=== PATIENT | male | born 1975 | race Caucasian/White ===

== ENCOUNTER 2019-02-05 10:08 | Emergency (ER) | payer OTHER ==
[~2019-02-05] VITALS: Ht 188 cm; Wt 90.7 kg
[2019-02-05] MEDS ORDERED: NS IV 1000 ML 1,000 ML IV SCH (10:22)
--- NOTE | 2019-02-05 10:34 | ED Syncope ---
General Chief Complaint: Dizziness/Syncope Stated Complaint: SYNCOPE Nursing Triage Note: REPORTS SATURDAY AND SATURDAY HE FELT HOT FEELING. REPORTS NOT DRINKING MUCH WATER YESTERDAY AND HIS URINE WAS DARK YELLOW LAST PM. THIS AM HE STATED HIS URINE WAS LIGHT YELLOW UPON AWAKENING BUT HE WENT TO WORK AND URINATED AND IT WAS A DARK ORANGE. COLOR. HE REPORTS HE LEFT THE RESTROOM AND FELT LIGHTHEADED AND DIZZY AND HE WOKE UP WITH COWORKERS STADNING OVER HIM. HE REPORTS HITTING HIS NOSE ON A DESK AT WORK. LOSS OF CONSCIOUSNESS BRIEFLY. History of Present Illness Date Seen by Provider: Feb 05, 2019 Time Seen by Provider: 10:20 Initial Comments 44-year-old male brought and following the syncope event. Patient reports that over the last couple days he has had decreased fluid intake. That he noticed that his urine was dark yesterday, that he has not been having as much stool is normal. Reports that last night he drank some Gatorade and a few beers. At this morning he got up his urine was light and normal but then when he went to urinate later this morning that was dark again and that he had a bowel movement. After getting up from the bowel movement he went and sat in his base where he just didn't feel good. He fell little bit lightheaded and dizzy. Reports that he got up to walk outside when he felt nauseated. He then vomited and had a syncope event. Reports that when he had a syncope event he hit his head. Patient reports this is still a little warm on Saturday and Saturday. He denied any chest pain or other acute symptoms at this time. Allergies and Home Medications Allergies Coded Allergies: No Known Drug Allergies (Unverified , 02/05/19) Patient Home Medication List Home Medication List Reviewed: Yes Review of Systems Constitutional: chills, dizziness; No fever EENTM: see HPI Respiratory: no symptoms reported Cardiovascular: No chest pain, No palpitations Gastrointestinal: No abdominal pain; nausea Genitourinary: decreased output Musculoskeletal: no symptoms reported Skin: no symptoms reported Psychiatric/Neurological: Denies Headache, Denies Numbness, Denies Seizure Past [id number] Hx Past Med/Social Hx: Reviewed Nursing Past Med/Soc Hx Patient Social History Recent Foreign Travel: No Contact w/Someone Who Travel: No Recent Infectious Disease Expo: No Physical Exam Vital Signs Vital Signs - First Documented 02/05/19 10:20 Temp 97.3 Pulse 84 Resp 18 B/P (MAP) 134/90 (105) Pulse Ox 97 O2 Delivery Room Air Capillary Refill : Less Than 3 Seconds Height, Weight, BMI Height: 6'2.00" Weight: 200lbs. oz. 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 Norm as Tested Cranial Nerves: PERRL Coordination/Gait: Normal Gait Motor/Sensory: No Motor Deficit Skin: Other (Rosacea over his bilateral cheeks, abrasion over the bridge of the nose from his fall) Progress/Results/Core Measures Results/Orders Lab Results Laboratory Tests Test 02/05/19 10:25 02/05/19 12:00 Range/Units White Blood Count 4.9 4.3-11.0 10^3/uL Red Blood Count 3.75 L 4.35-5.85 10^6/uL Hemoglobin 13.4 13.3-17.7 G/DL Hematocrit 38 L 40-54 % Mean Corpuscular Volume 100 H 80-99 FL Mean Corpuscular Hemoglobin 36 H 25-34 PG Mean Corpuscular Hemoglobin Concent 36 32-36 G/DL Red Cell Distribution Width 12.5 10.0-14.5 % Platelet Count 124 L 130-400 10^3/uL Mean Platelet Volume 10.8 H 7.4-10.4 FL Neutrophils (%) (Auto) 61 42-75 % Lymphocytes (%) (Auto) 27 12-44 % Monocytes (%) (Auto) 9 0-12 % Eosinophils (%) (Auto) 2 0-10 % Basophils (%) (Auto) 1 0-10 % Neutrophils # (Auto) 3.0 1.8-7.8 X 10^3 Lymphocytes # (Auto) 1.4 1.0-4.0 X 10^3 Monocytes # (Auto) 0.4 0.0-1.0 X 10^3 Eosinophils # (Auto) 0.1 0.0-0.3 10^3/uL Basophils # (Auto) 0.1 0.0-0.1 10^3/uL Sodium Level 135 135-145 MMOL/L Potassium Level 2.9 L 3.6-5.0 MMOL/L Chloride Level 90 L 98-107 MMOL/L Carbon Dioxide Level 26 21-32 MMOL/L Anion Gap 19 H 5-14 MMOL/L Blood Urea Nitrogen 7 7-18 MG/DL Creatinine 1.03 0.60-1.30 MG/DL Estimat Glomerular Filtration Rate > 60 BUN/Creatinine Ratio 7 Glucose Level 143 H 70-105 MG/DL Calcium Level 8.7 8.5-10.1 MG/DL Corrected Calcium 8.5 8.5-10.1 MG/DL Total Bilirubin 6.6 H 0.1-1.0 MG/DL Direct Bilirubin 4.8 H 0.0-0.3 MG/DL Aspartate Amino Transf (AST/SGOT) 584 H 5-34 U/L Alanine Aminotransferase (ALT/SGPT) 265 H 0-55 U/L Alkaline Phosphatase 234 H 40-136 U/L Troponin I < 0.30 <0.30 NG/ML Total Protein 7.1 6.4-8.2 GM/DL Albumin 4.2 3.2-4.5 GM/DL Lipase 42 8-78 U/L Serum Alcohol 50 H <10 MG/DL Urine Color BROWN H Urine Clarity CLEAR Urine pH 6.5 5-9 Urine Specific [place] 1.025 H 1.016-1.022 Urine Protein TRACE NEGATIVE Urine Glucose (UA) TRACE H NEGATIVE Urine Ketones TRACE H NEGATIVE Urine Nitrite NEGATIVE NEGATIVE Urine Bilirubin 2+ H NEGATIVE Urine Urobilinogen 4.0 NORMAL MG/DL Urine Leukocyte Esterase NEGATIVE NEGATIVE Urine RBC (Auto) NEGATIVE NEGATIVE Urine RBC NONE /HPF Urine WBC NONE /HPF Urine Crystals NONE /LPF Urine Bacteria NONE /HPF Urine Casts PRESENT /LPF Urine Hyaline Casts 0-2 H /LPF Urine Mucus LARGE H /LPF Urine Culture Indicated NO My Orders Orders - VIRAJ MEDINA L DO Accucheck Stat ONCE (02/05/19 10:22) Ed Iv/Invasive Line Start (02/05/19 10:22) Ekg Tracing (02/05/19 10:22) Alcohol (02/05/19 10:22) Cbc With Automated Diff (02/05/19 10:22) Comprehensive Metabolic Panel (02/05/19 10:22) Creatine Kinase (02/05/19 10:22) Lipase (02/05/19 10:22) Troponin I (02/05/19 10:22) Ua Culture If Indicated (02/05/19 10:22) Acute Abd Series (02/05/19 10:22) Ct Head Wo (02/05/19 10:22) Ed Iv/Invasive Line Start (02/05/19 10:22) Ed Iv/Invasive Line Start (02/05/19 10:22) Ns Iv 1000 Ml (Sodium Chloride 0.9%) (02/05/19 10:22) Potassium Cl 10meq/50ml Ivpb (Kcl 10 Meq (02/05/19 11:30) Magnesium 1 Gm/100 Ml Ivpb (Magnesium [place] (02/05/19 11:30) Ct Abdomen/Pelvis W (02/05/19 11:36) Iohexol Injection (Omnipaque 350 Mg/Ml 1 (02/05/19 12:15) Received Contrast (Hold Metformin- Contr (02/05/19 12:15) Sodium Chloride Flush (Catheter Flush Sy (02/05/19 12:15) Ns (Ivpb) (Sodium Chloride 0.9% Ivpb Bag (02/05/19 12:15) Bilirubin,Direct (02/05/19 13:23) Medications Given in ED Current Medications Medications Dose Ordered Sig/[place] Route Start Time Stop Time Status Last Admin Dose Admin Iohexol 100 ml ONCE ONCE IV 02/05/19 12:15 02/05/19 12:16 DC 02/05/19 12:30 100 ML Sodium Chloride 10 ml NEEDED PRN IV 02/05/19 12:15 02/05/19 12:31 10 ML Sodium Chloride 100 ml ONCE ONCE IV 02/05/19 12:15 02/05/19 12:16 DC 02/05/19 12:31 100 ML Vital Signs/I&O 02/05/19 10:20 Temp 97.3 Pulse 84 Resp 18 B/P (MAP) 134/90 (105) Pulse Ox 97 O2 Delivery Room Air Blood Pressure Mean: 105 Progress Progress Note : Progress Note Reviewed CT, lab results with GI specialist at [facility]. [place] that it was best that they be transferred there for possible ERCP/MRCP and right upper quadrant all trip sounds. Patient will be transferred to the emergency room accepted by Dr. Singh due to his fall, syncope event. Patient is transferred by EMS in stable condition. Initial ECG Impression Date: Feb 05, 2019 Initial ECG Impression Time: 10:30 Initial ECG Rhythm: Normal Sinus Initial ECG Intervals: Normal Initial ECG Impression: Normal Comment NSR Departure Impression Primary Impression: Total bilirubin, elevated Additional Impressions: Hypokalemia Syncope Qualified Codes: R55 - Syncope and collapse Disposition: 02 XFER SHT-TRM HOSP Condition: Stable Transfer Time Spoke to Accepting Phy: 14:05 Transfer Facility: [facility] [place] Method of Transfer: EMS Departure-Patient Inst. Referrals: NO,LOCAL PHYSICIAN (PCP/Family) Primary Care Physician VIRAJ MEDINA DO Feb 05, 2019 10:34
[2019-02-05 10:40] LABS: HEMATOCRIT 38 % (40-54); HEMOGLOBIN 13.4 G/DL (13.3-17.7); MEAN CORPUSCULAR HEMOGLOBIN 36 PG (25-34); MEAN CORPUSCULAR HGB CONC 36 G/DL (32-36); MEAN CORPUSCULAR VOLUME 100 FL (80-99); PLATELET COUNT 124 10^3/uL (130-400); RED CELL DISTRIBUTION WIDTH 12.5 % (10.0-14.5); WHITE BLOOD COUNT 4.9 10^3/uL (4.3-11.0)
[2019-02-05 10:41] LABS: BASOPHILS # (AUTO) 0.1 10^3/uL (0.0-0.1); BASOPHILS % (AUTO) 1 % (0-10); EOSINOPHILS # (AUTO) 0.1 10^3/uL (0.0-0.3); EOSINOPHILS % (AUTO) 2 % (0-10); LYMPHOCYTES # (AUTO) 1.4 X 10^3 (1.0-4.0); LYMPHOCYTES % (AUTO) 27 % (12-44); MEAN PLATELET VOLUME 10.8 FL (7.4-10.4); MONOCYTES # (AUTO) 0.4 X 10^3 (0.0-1.0); MONOCYTES % (AUTO) 9 % (0-12); NEUTROPHILS % (AUTO) 61 % (42-75)
--- NOTE | 2019-02-05 10:46 | Diagnostic Imaging Report ---
PROCEDURE: CT head without contrast. TECHNIQUE: Multiple contiguous axial images were obtained through the brain without the use of intravenous contrast. Auto Exposure Controls were utilized during the CT exam to meet ALARA standards for radiation dose reduction. INDICATION: Dizziness and syncope with loss of consciousness CT HEAD: CT images of the head were obtained. FINDINGS: Ventricles and sulci are within normal limits for size. There is no intracranial hemorrhage identified. There is no abnormal mass effect or shift of midline structures. IMPRESSION: Unremarkable CT of the head. Dictated by: Dictated on workstation # [id number]
[2019-02-05 11:01] LABS: ALANINE AMINOTRANSFERASE 265 U/L (0-55); ALKALINE PHOSPHATASE 234 U/L (40-136); BILIRUBIN,TOTAL 6.6 MG/DL (0.1-1.0); BUN/CREATININE RATIO 7; CALCIUM 8.7 MG/DL (8.5-10.1); CARBON DIOXIDE 26 MMOL/L (21-32); CHLORIDE 90 MMOL/L (98-107); CREATININE SERUM 1.03 MG/DL (0.60-1.30); GFR ESTIMATED > 60; GLUCOSE 143 MG/DL (70-105); POTASSIUM 2.9 MMOL/L (3.6-5.0); SODIUM 135 MMOL/L (135-145); TOTAL PROTEIN 7.1 GM/DL (6.4-8.2)
[2019-02-05 11:02] LABS: ALBUMIN 4.2 GM/DL (3.2-4.5); LIPASE 42 U/L (8-78)
--- NOTE | 2019-02-05 11:16 | Diagnostic Imaging Report ---
INDICATION: Dizziness with nausea and vomiting. TIME OF EXAM: 10:24 a.m. FINDINGS: Heart size is normal. Lungs are clear. No free air is identified on the upright view. Bowel gas pattern is nonobstructed. No pathologic calcifications are seen. There is questionable hepatic enlargement. IMPRESSION: Questionable hepatomegaly. The study is otherwise unremarkable. Dictated by: Dictated on workstation # [id number]
[2019-02-05] MEDS ORDERED: POTASSIUM CL 10MEQ/50ML IVPB 50 ML IV SCH (11:30)
[2019-02-05] MEDS ORDERED: MAGNESIUM 1 GM/100 ML IVPB 100 ML IV SCH (11:30)
[2019-02-05] MEDS ORDERED: HOLD METFORMIN - RECEIVED CONTRAST 20 ML VIAL IV SCH (12:15)
[2019-02-05] MEDS ORDERED: NS 100 ML (IVPB) BAG IV ONE (12:15)
[2019-02-05] MEDS ORDERED: IOHEXOL 350 MG/ML 100 ML (OMNIPAQUE 350) VIAL IV ONE (12:15)
[2019-02-05] MEDS ORDERED: CATHETER FLUSH 10 ML SYR IV PRN (12:15)
[2019-02-05 12:20] LABS: BILIRUBIN,URINE 2+ (NEGATIVE); CLARITY,URINE CLEAR; COLOR,URINE BROWN; GLUCOSE, URINE (UA) TRACE (NEGATIVE); KETONES,URINE TRACE (NEGATIVE); LEUKOCYTE ESTERASE ,URINE NEGATIVE (NEGATIVE); NITRITE,URINE NEGATIVE (NEGATIVE); PH,URINE 6.5 (5-9); PROTEIN,URINE TRACE (NEGATIVE)
[2019-02-05 12:21] LABS: HYALINE CASTS, URINE 0-2 /LPF
--- NOTE | 2019-02-05 12:47 | Diagnostic Imaging Report ---
INDICATION: Abdominal pain and nausea and vomiting, elevated liver enzymes. CT abdomen and pelvis obtained with IV contrast bolus. The visualized portions of the lung bases show dependent atelectatic changes. There is no consolidation or pleural fluid. There is no free intraperitoneal air. The liver shows marked diffuse low-density change compatible with fatty infiltration. There is no focal liver lesion. Gallbladder and spleen appear unremarkable. The adrenals and pancreas and kidneys appear normal. There is no retroperitoneal mass or adenopathy. There's no ascites or abnormal fluid collection. Visualized bowel loops show no sign of obstruction. There is some faint edema in the fat adjacent to the ascending colon which may represent minimal colitis. The appendix appears normal. There is no pelvic mass or free fluid. IMPRESSION: There is profound fatty infiltration of the liver without focal lesion. There is no biliary dilatation. There is some faint edema in the fat adjacent to the ascending colon which may represent mild colitis. The appendix appears normal. Dictated by: Dictated on workstation # [id number]
[2019-02-05 14:19] VITALS: BP 157/95
[2019-02-05 14:24] VITALS: BP 142/72
[2019-02-05 15:16] LABS: CREATINE KINASE 500 U/L (30-200)
== END 2019-02-05 14:37 | disposition short-term general hospital (02) ==
LOC: ER FS 10:10
DX: R55 Syncope and collapse (principal); E87.6 Hypokalemia; E80.7 Disorder of bilirubin metabolism, unspecified
CPT/HCPCS: 36415; 70450; 74022; 74177; 80053; 80320; 81000; 82248; 82550; 83690; 84484; 85025; 93005; 96374